=== PATIENT | female | born 1965 | race Hispanic/Latino ===

== ENCOUNTER 2019-01-20 21:56 | Emergency (ER) | payer OTHER ==
[2019-01-20] MEDS ORDERED: LIDOCAINE 5% TOPICAL PATCH TP ONE (22:30)
[2019-01-20] MEDS ORDERED: KETOROLAC TROMETHAMINE 60 MG/2 ML VIAL ONE (22:30)
[2019-01-20] MEDS ORDERED: DEXAMETHASONE SOD PHOSPHATE 10MG/ML 1ML VIAL ONE (22:30)
== END 2019-01-20 23:10 | disposition home or self-care (01) ==
LOC: EDH 21:56
DX: M54.40 Lumbago with sciatica, unspecified side (principal); Z90.49 Acquired absence of other specified parts of digestive tract; Z98.51 Tubal ligation status; Z90.710 Acquired absence of both cervix and uterus; Z98.890 Other specified postprocedural states; Z88.5 Allergy status to narcotic agent; Z88.8 Allergy status to other drugs, medicaments and biological substances
CPT/HCPCS: 96372 ×2; 99284; J1100; J1885

== ENCOUNTER 2019-02-15 20:14 | Emergency (ER) | payer OTHER ==
[2019-02-15] MEDS ORDERED: KETOROLAC TROMETHAMINE 60 MG/2 ML VIAL ONE (20:33)
[2019-02-15] MEDS ORDERED: DEXAMETHASONE SOD PHOSPHATE 4 MG/ML 5ML VIAL ONE (20:33)
== END 2019-02-15 21:31 | disposition home or self-care (01) ==
LOC: EDH 20:14
DX: M54.42 Lumbago with sciatica, left side (principal); I10 Essential (primary) hypertension; Z88.6 Allergy status to analgesic agent; Z88.8 Allergy status to other drugs, medicaments and biological substances; Z98.890 Other specified postprocedural states; Z98.51 Tubal ligation status; Z90.710 Acquired absence of both cervix and uterus; Z79.899 Other long term (current) drug therapy
CPT/HCPCS: 96372 ×2; 99284; J1100; J1885

== ENCOUNTER 2019-02-18 15:02 | Emergency (ER) | payer OTHER ==
[2019-02-18] MEDS ORDERED: KETOROLAC TROMETHAMINE 60 MG/2 ML VIAL ONE (15:55)
[2019-02-18 16:13] LABS: APPEARANCE,URINE Clear (CLEAR); BILIRUBIN,URINE Negative (NEGATIVE); COLOR,URINE Yellow (YELLOW); GLUCOSE, URINE (UA) Negative (NEGATIVE); KETONES,URINE Negative (NEGATIVE); LEUKOCYTE ESTERASE ,URINE Moderate (NEGATIVE); NITRATE,URINE Negative (NEGATIVE); OCCULT BLOOD,URINE Negative (NEGATIVE); PROTEIN,URINE Negative (NEGATIVE)
[2019-02-18 16:19] LABS: BACTERIA,URINE Few /HPF (None Seen); MUCUS,URINE Few LPF (None Seen); RBC,URINE 0-1 /HPF (0-1)
== END 2019-02-18 16:34 | disposition home or self-care (01) ==
LOC: EDH 15:02
DX: M54.42 Lumbago with sciatica, left side (principal); N39.0 Urinary tract infection, site not specified; I10 Essential (primary) hypertension; Z88.6 Allergy status to analgesic agent; Z90.49 Acquired absence of other specified parts of digestive tract; Z98.890 Other specified postprocedural states; Z98.51 Tubal ligation status; Z90.710 Acquired absence of both cervix and uterus
CPT/HCPCS: 81001; 96372; 99283; J1885

== ENCOUNTER 2019-02-21 20:55 | Emergency (ER) | payer OTHER ==
[2019-02-21 21:21] LABS: APPEARANCE,URINE Clear (CLEAR); BILIRUBIN,URINE Negative (NEGATIVE); COLOR,URINE Yellow (YELLOW); GLUCOSE, URINE (UA) Negative (NEGATIVE); KETONES,URINE Negative (NEGATIVE); LEUKOCYTE ESTERASE ,URINE Trace (NEGATIVE); NITRATE,URINE Negative (NEGATIVE); OCCULT BLOOD,URINE Negative (NEGATIVE); PROTEIN,URINE Negative (NEGATIVE); UROBILINOGEN,URINE 0.2 mg/dL (0.2-1.0)
[2019-02-21 21:33] LABS: BACTERIA,URINE Rare /HPF (None Seen); RBC,URINE 0-1 /HPF (0-1)
[2019-02-21 22:20] LABS: BASOPHILS % (AUTO) 0.4 % (0.0-5.0); EOSINOPHILS % (AUTO) 1.5 % (0.0-8.0); HEMATOCRIT 40.4 % (36-48); LYMPHOCYTES % (AUTO) 11.7 % (21.0-51.0); MEAN CORPUSCULAR HGB CONC 34.6 g/dL (32.0-36.0); MEAN CORPUSCULAR VOLUME 95.2 fL (79-99); MONOCYTES % (AUTO) 7.9 % (3.0-13.0); NEUTROPHILS % (AUTO) 78.5 % (40.0-77.0); PLATELET COUNT (AUTO) 367 K/uL (130-400); RED BLOOD CELL COUNT(AUTO) 4.24 MIL/uL (4.00-5.50); WHITE BLOOD COUNT (AUTO) 11.8 K/uL (4.8-10.8)
[2019-02-21] MEDS ORDERED: SODIUM CHLORIDE 0.9% 1000ML 1,000 ML IV ONE (22:21)
[2019-02-21 22:30] LABS: POTASSIUM 4.4 mmol/L (3.5-5.1)
[2019-02-21 22:33] LABS: ALBUMIN 3.4 g/dL (3.5-5.0); BILIRUBIN,TOTAL 0.5 mg/dL (0.2-1.0); TOTAL PROTEIN, SERUM 7.4 g/dL (6.0-8.3)
[2019-02-21] MEDS ORDERED: CEFTRIAXONE SODIUM 1 GM ONE (22:35)
[2019-02-21] MEDS ORDERED: SODIUM CHLORIDE 0.9% 50 ML IV ONE (22:35)
[2019-02-21] MEDS ORDERED: KETOROLAC TROMETHAMINE 30MG/ML ONE (22:35)
== END 2019-02-21 23:43 | disposition home or self-care (01) ==
LOC: EDH 20:55
DX: N39.0 Urinary tract infection, site not specified (principal); M54.2 Cervicalgia; R19.7 Diarrhea, unspecified; I10 Essential (primary) hypertension; Z98.51 Tubal ligation status; Z90.710 Acquired absence of both cervix and uterus; Z88.5 Allergy status to narcotic agent; Z88.8 Allergy status to other drugs, medicaments and biological substances
CPT/HCPCS: 36415; 72131; 74176; 80053; 81001; 85025; 87088; 96361; 96374; 96375; 99285; J0696; J1885; J7030

== ENCOUNTER 2019-03-04 17:24 | Emergency (ER) | payer OTHER ==
[2019-03-04 17:46] LABS: APPEARANCE,URINE Cloudy (CLEAR); BILIRUBIN,URINE Small (NEGATIVE); COLOR,URINE Dark Yellow (YELLOW); GLUCOSE, URINE (UA) TRACE mg/dL (NEGATIVE); KETONES,URINE Trace mg/dL (NEGATIVE); LEUKOCYTE ESTERASE ,URINE Small (NEGATIVE); NITRATE,URINE Negative (NEGATIVE); OCCULT BLOOD,URINE Negative (NEGATIVE); PROTEIN,URINE POS 1+ mg/dL (NEGATIVE)
[2019-03-04 17:52] LABS: BACTERIA,URINE Few /HPF (None Seen); MUCUS,URINE Few LPF (None Seen); RBC,URINE 0-1 /HPF (0-1); SQUAMOUS EPITHELIAL CELL,UR Few /HPF (0-2)
[2019-03-04 18:09] LABS: BASOPHILS % (AUTO) 0.5 % (0.0-5.0); EOSINOPHILS % (AUTO) 1.3 % (0.0-8.0); HEMATOCRIT 41.8 % (36-48); LYMPHOCYTES % (AUTO) 11.5 % (21.0-51.0); MEAN CORPUSCULAR HEMOGLOBIN 32.5 pg (27.0-33.0); MEAN CORPUSCULAR HGB CONC 33.9 g/dL (32.0-36.0); MEAN CORPUSCULAR VOLUME 95.9 fL (79-99); MONOCYTES % (AUTO) 6.5 % (3.0-13.0); NEUTROPHILS % (AUTO) 80.2 % (40.0-77.0); PLATELET COUNT (AUTO) 364 K/uL (130-400); RED BLOOD CELL COUNT(AUTO) 4.36 MIL/uL (4.00-5.50); RED CELL DISTRIBUTION WIDTH 12.6 % (11.0-15.5); WHITE BLOOD COUNT (AUTO) 14.5 K/uL (4.8-10.8)
[2019-03-04] MEDS ORDERED: ONDANSETRON HCL 4 MG/2 ML VIAL ONE (18:11)
[2019-03-04] MEDS ORDERED: KETOROLAC TROMETHAMINE 30MG/ML ONE (18:11)
[2019-03-04] MEDS ORDERED: SODIUM CHLORIDE 0.9% 1000ML 1,000 ML IV ONE (18:12)
[2019-03-04 18:21] LABS: CREATININE 0.9 mg/dL (0.5-1.5); POTASSIUM 3.7 mmol/L (3.5-5.1)
[2019-03-04 18:26] LABS: ALBUMIN 3.3 g/dL (3.5-5.0); BILIRUBIN,TOTAL 0.5 mg/dL (0.2-1.0); TOTAL PROTEIN, SERUM 7.3 g/dL (6.0-8.3)
[2019-03-04] MEDS ORDERED: IOHEXOL-350 75 ML VIAL IV ONE (18:32)
== END 2019-03-04 19:55 | disposition home or self-care (01) ==
LOC: EDH 17:24
DX: K52.9 Noninfective gastroenteritis and colitis, unspecified (principal); I10 Essential (primary) hypertension; Z88.6 Allergy status to analgesic agent; Z88.8 Allergy status to other drugs, medicaments and biological substances; Z90.710 Acquired absence of both cervix and uterus; Z98.890 Other specified postprocedural states; Z98.51 Tubal ligation status; Z79.899 Other long term (current) drug therapy
CPT/HCPCS: 36415; 71045; 74177; 80053; 81001; 83605; 83690; 85025; 87040 ×2; 87804 ×2; 96361; 96374; 96375; 99285; J1885; J2405; J7030; Q9967

== ENCOUNTER 2020-04-28 13:31 | Emergency (ER) | payer BC, OTHER ==
[2020-04-28 15:04] LABS: BASOPHILS % (AUTO) 0.4 % (0.0-5.0); EOSINOPHILS % (AUTO) 2.2 % (0.0-8.0); LYMPHOCYTES % (AUTO) 12.2 % (21.0-51.0); MEAN CORPUSCULAR HEMOGLOBIN 32.5 pg (27.0-33.0); MEAN CORPUSCULAR HGB CONC 33.8 g/dL (32.0-36.0); MEAN CORPUSCULAR VOLUME 96.1 fL (79-99); MONOCYTES % (AUTO) 7.5 % (3.0-13.0); NEUTROPHILS % (AUTO) 77.4 % (40.0-77.0); PLATELET COUNT (AUTO) 370 K/uL (130-400); RED BLOOD CELL COUNT(AUTO) 3.85 MIL/uL (4.00-5.50); RED CELL DISTRIBUTION WIDTH 13.2 % (11.0-15.5); WHITE BLOOD COUNT (AUTO) 11.3 K/uL (4.8-10.8)
[2020-04-28 15:14] LABS: CREATININE 0.9 mg/dL (0.5-1.5); POTASSIUM 3.6 mmol/L (3.5-5.1)
[2020-04-28 15:15] LABS: INR 0.95 (0.85-1.15); PARTIAL THROMBOPLASTIN TIME 31.5 SEC (26.3-35.5); PROTHROMBIN TIME 10.3 SEC (9.6-11.6)
[2020-04-28 15:19] LABS: ALBUMIN 3.5 g/dL (3.5-5.0); BILIRUBIN,TOTAL 0.5 mg/dL (0.2-1.0); TOTAL PROTEIN, SERUM 7.2 g/dL (6.0-8.3)
== END 2020-04-28 17:29 | disposition home or self-care (01) ==
LOC: EDH 13:31
DX: R07.89 Other chest pain (principal); I11.0 Hypertensive heart disease with heart failure; I50.9 Heart failure, unspecified; E11.9 Type 2 diabetes mellitus without complications; E78.00 Pure hypercholesterolemia, unspecified; Z90.710 Acquired absence of both cervix and uterus; Z98.890 Other specified postprocedural states; Z88.6 Allergy status to analgesic agent; Z88.8 Allergy status to other drugs, medicaments and biological substances; Z79.899 Other long term (current) drug therapy; Z79.84 Long term (current) use of oral hypoglycemic drugs
CPT/HCPCS: 36415; 71045; 80053; 82550; 84484; 85025; 85610; 85730; 93005

== ENCOUNTER 2021-05-22 18:45 | Emergency (ER) | payer BC ==
[~2021-05-22] VITALS: Ht 170.2 cm; Wt 103.4 kg
[2021-05-22 19:14] LABS: BASOPHILS % (AUTO) 0.3 % (0.0-5.0); EOSINOPHILS % (AUTO) 0.7 % (0.0-8.0); HEMATOCRIT 39.6 % (36-48); LYMPHOCYTES % (AUTO) 9.2 % (21.0-51.0); MEAN CORPUSCULAR HGB CONC 33.8 g/dL (32.0-36.0); MEAN CORPUSCULAR VOLUME 94.5 fL (79-99); MONOCYTES % (AUTO) 7.2 % (3.0-13.0); NEUTROPHILS % (AUTO) 82.3 % (40.0-77.0); PLATELET COUNT (AUTO) 323 K/uL (130-400); RED BLOOD CELL COUNT(AUTO) 4.19 MIL/uL (4.00-5.50); RED CELL DISTRIBUTION WIDTH 12.4 % (11.0-15.5); WHITE BLOOD COUNT (AUTO) 15.1 K/uL (4.8-10.8)
[2021-05-22] MEDS ORDERED: 0.9% NACL 500ML IV.SOLN 500 ML IV STA (19:40)
[2021-05-22 19:42] LABS: CREATININE 1.6 mg/dL (0.5-1.5); POTASSIUM 3.6 mmol/L (3.5-5.1)
[2021-05-22 19:46] LABS: BILIRUBIN,TOTAL 0.4 mg/dL (0.2-1.0); TOTAL PROTEIN, SERUM 7.3 g/dL (6.0-8.3)
[2021-05-22] MEDS ORDERED: PROCHLORPERAZINE 10MG/2ML INJ ONE (19:53)
[2021-05-22 19:58] LABS: APPEARANCE,URINE CLOUDY (CLEAR); BILIRUBIN,URINE LARGE (NEGATIVE); COLOR,URINE ORANGE (YELLOW); GLUCOSE, URINE (UA) 250 mg/dL (NEGATIVE); KETONES,URINE 15 mg/dL (NEGATIVE); LEUKOCYTE ESTERASE ,URINE LARGE (NEGATIVE); NITRATE,URINE POSITIVE (NEGATIVE); OCCULT BLOOD,URINE TRACE-INTACT (NEGATIVE); PH,URINE 6.5 (5.0-8.0); PROTEIN,URINE >=300 mg/dL (NEGATIVE); UROBILINOGEN,URINE >=8.0 mg/dL (0.2-1.0)
[2021-05-22] MEDS ORDERED: PROCHLORPERAZINE 10MG/2ML INJ IV ONE (20:00)
[2021-05-22 20:09] LABS: BACTERIA,URINE Moderate /HPF (None Seen); MUCUS,URINE Few LPF (None Seen); SQUAMOUS EPITHELIAL CELL,UR Few /HPF (0-2)
[2021-05-22] MEDS ORDERED: CEFTRIAXONE 1G VIAL IVP ONE (20:18)
[2021-05-22] MEDS ORDERED: CEFTRIAXONE 1G VIAL IVP SCH (20:18)
[2021-05-22] MEDS ORDERED: 0.9% NACL 500ML IV.SOLN 500 ML IV ONE (20:31)
[2021-05-22] MEDS ORDERED: MECL-226 PO (21:47)
[2021-05-22] MEDS ORDERED: CEPH500B PO (21:47)
[2021-05-22 22:09] VITALS: BP 134/84
== END 2021-05-22 22:21 | disposition home or self-care (01) ==
LOC: EDH 18:45
DX: N39.0 Urinary tract infection, site not specified (principal); H83.09 Labyrinthitis, unspecified ear; E11.9 Type 2 diabetes mellitus without complications; E78.00 Pure hypercholesterolemia, unspecified; I10 Essential (primary) hypertension; Z88.5 Allergy status to narcotic agent
CPT/HCPCS: 36415; 71045; 80053; 81001; 84484; 85025; 87040 ×2; 87077; 87088; 87186; 93005; 96361; 96374; 96375; 99284; J0696; J0780; J7040

== ENCOUNTER 2021-08-25 17:32 | Emergency (ER) | payer BC, OTHER ==
[~2021-08-25] VITALS: Ht 167.6 cm; Wt 104.3 kg
[~2021-08-25 17:32] MED LIST: CEPH500B PO; MECL-226 PO
[2021-08-25 17:34] VITALS: BP 130/86
[2021-08-25 20:26] LABS: APPEARANCE,URINE Clear (CLEAR); BILIRUBIN,URINE Small (NEGATIVE); COLOR,URINE Dark Yellow (YELLOW); GLUCOSE, URINE (UA) Negative (NEGATIVE); KETONES,URINE Trace mg/dL (NEGATIVE); LEUKOCYTE ESTERASE ,URINE Trace (NEGATIVE); NITRATE,URINE Negative (NEGATIVE); OCCULT BLOOD,URINE Negative (NEGATIVE); PH,URINE 5.5 (5.0-8.0); PROTEIN,URINE Trace mg/dL (NEGATIVE)
[2021-08-25 20:29] LABS: BASOPHILS % (AUTO) 0.7 % (0.0-5.0); EOSINOPHILS % (AUTO) 2.1 % (0.0-8.0); HEMATOCRIT 39.6 % (36-48); LYMPHOCYTES % (AUTO) 15.8 % (21.0-51.0); MEAN CORPUSCULAR HEMOGLOBIN 31.1 pg (27.0-33.0); MEAN CORPUSCULAR HGB CONC 32.3 g/dL (32.0-36.0); MEAN CORPUSCULAR VOLUME 96.4 fL (79-99); MONOCYTES % (AUTO) 7.9 % (3.0-13.0); NEUTROPHILS % (AUTO) 73.1 % (40.0-77.0); PLATELET COUNT (AUTO) 381 K/uL (130-400); RED BLOOD CELL COUNT(AUTO) 4.11 MIL/uL (4.00-5.50); RED CELL DISTRIBUTION WIDTH 12.5 % (11.0-15.5); WHITE BLOOD COUNT (AUTO) 11.7 K/uL (4.8-10.8)
[2021-08-25] MEDS ORDERED: TRAMADOL HCL 50 MG TABLET PO ONE (20:30)
[2021-08-25 20:37] LABS: BACTERIA,URINE Few /HPF (None Seen); MUCUS,URINE Moderate LPF (None Seen); RBC,URINE 0-1 /HPF (0-1); SQUAMOUS EPITHELIAL CELL,UR Few /HPF (0-2)
[2021-08-25 20:39] LABS: CREATININE 0.9 mg/dL (0.5-1.5); POTASSIUM 3.9 mmol/L (3.5-5.1)
[2021-08-25 20:39] LABS: HYALINE CASTS, URINE 0-1 /LPF (0-1 /LPF)
[2021-08-25 20:44] LABS: ALBUMIN 3.8 g/dL (3.5-5.0); BILIRUBIN,TOTAL 0.4 mg/dL (0.2-1.0); TOTAL PROTEIN, SERUM 7.5 g/dL (6.0-8.3)
[2021-08-25] MEDS ORDERED: IOHEXOL 350 MG/ML 100ML INFUS..BTL IV ONE (20:50)
[2021-08-25] MEDS ORDERED: TRAMADOL HCL 50 MG TABLET ONE (21:56)
[2021-08-25] MEDS ORDERED: KETOROLAC 30MG VIAL (30MG/ML) IM ONE (22:00)
[2021-08-25] MEDS ORDERED: NAPR-1023 PO (22:45)
== END 2021-08-25 22:57 | disposition home or self-care (01) ==
LOC: EDH 17:32
DX: R10.2 Pelvic and perineal pain (principal); E11.9 Type 2 diabetes mellitus without complications; E78.00 Pure hypercholesterolemia, unspecified; I10 Essential (primary) hypertension; Z79.1 Long term (current) use of non-steroidal anti-inflammatories (NSAID); Z88.5 Allergy status to narcotic agent
CPT/HCPCS: 36415; 73521; 74177; 80053; 81001; 85025; 96372; 99285; J1885; Q9967

== ENCOUNTER 2021-10-11 23:14 | Emergency (ER) | payer OTHER ==
[~2021-10-11] VITALS: Ht 170.2 cm; Wt 112.5 kg
[~2021-10-11 23:14] MED LIST changes: +NAPR-1023 PO
[2021-10-11 23:53] LABS: BASOPHILS % (AUTO) 0.5 % (0.0-5.0); HEMATOCRIT 32.8 % (36-48); LYMPHOCYTES % (AUTO) 17.3 % (21.0-51.0); MEAN CORPUSCULAR HEMOGLOBIN 31.9 pg (27.0-33.0); MEAN CORPUSCULAR HGB CONC 33.5 g/dL (32.0-36.0); MEAN CORPUSCULAR VOLUME 95.1 fL (79-99); MONOCYTES % (AUTO) 10.1 % (3.0-13.0); NEUTROPHILS % (AUTO) 68.7 % (40.0-77.0); PLATELET COUNT (AUTO) 317 K/uL (130-400); RED BLOOD CELL COUNT(AUTO) 3.45 MIL/uL (4.00-5.50); RED CELL DISTRIBUTION WIDTH 13.1 % (11.0-15.5)
[2021-10-12 00:02] LABS: CREATININE 0.7 mg/dL (0.5-1.5); POTASSIUM 3.6 mmol/L (3.5-5.1)
[2021-10-12 00:11] LABS: BILIRUBIN,TOTAL 0.3 mg/dL (0.2-1.0); TOTAL PROTEIN, SERUM 6.4 g/dL (6.0-8.3)
[2021-10-12] MEDS ORDERED: KETOROLAC 30MG VIAL (30MG/ML) IVP ONE (00:30)
[2021-10-12] MEDS ORDERED: 0.9%NACL 1000ML 1,000 ML IV ONE (00:30)
[2021-10-12] MEDS ORDERED: ORPHENADRINE CITRATE 30 MG/ML ML IVP ONE (00:30)
[2021-10-12] MEDS ORDERED: ONDANSETRON 4MG INJ IVP ONE (00:30)
[2021-10-12] MEDS ORDERED: MELO7.5T12 PO (02:59)
[2021-10-12] MEDS ORDERED: ORPH-43 PO (02:59)
[2021-10-12] MEDS ORDERED: HYDR25CA PO (02:59)
[2021-10-12] MEDS ORDERED: ONDA4TAB10 PO (02:59)
[2021-10-12 03:09] VITALS: BP 148/87
== END 2021-10-12 03:10 | disposition home or self-care (01) ==
LOC: EDH 23:14
DX: M62.838 Other muscle spasm (principal); F43.9 Reaction to severe stress, unspecified; E86.9 Volume depletion, unspecified; E11.9 Type 2 diabetes mellitus without complications; I11.9 Hypertensive heart disease without heart failure; I25.10 Atherosclerotic heart disease of native coronary artery without angina pectoris; Z88.5 Allergy status to narcotic agent; Z86.16 Personal history of COVID-19; Z79.1 Long term (current) use of non-steroidal anti-inflammatories (NSAID); Z90.49 Acquired absence of other specified parts of digestive tract
CPT/HCPCS: 36415; 71045; 80053; 84484; 85025; 96361; 93005; 96374; 96375 ×2; 99285; J1885; J2360; J2405; J7030

== ENCOUNTER 2021-10-12 13:55 | Emergency (ER) | payer OTHER ==
[~2021-10-12] VITALS: Ht 170.2 cm; Wt 109.8 kg
[~2021-10-12 13:55] MED LIST changes: +HYDR25CA PO; +MELO7.5T12 PO; +ONDA4TAB10 PO; +ORPH-43 PO
[2021-10-12 15:32] VITALS: BP 159/79
== END 2021-10-12 15:57 | disposition home or self-care (01) ==
LOC: EDH 13:55
DX: I10 Essential (primary) hypertension (principal); E11.9 Type 2 diabetes mellitus without complications; Z79.1 Long term (current) use of non-steroidal anti-inflammatories (NSAID); Z88.5 Allergy status to narcotic agent; Z90.49 Acquired absence of other specified parts of digestive tract
CPT/HCPCS: 99281

== ENCOUNTER 2021-10-13 22:39 | Emergency (ER) | payer OTHER ==
[~2021-10-13] VITALS: Ht 170.2 cm; Wt 107.0 kg
[2021-10-14 00:31] VITALS: BP 158/89
== END 2021-10-14 00:37 | disposition home or self-care (01) ==
LOC: EDH 22:39
DX: I10 Essential (primary) hypertension (principal); E11.9 Type 2 diabetes mellitus without complications; Z79.1 Long term (current) use of non-steroidal anti-inflammatories (NSAID); Z88.5 Allergy status to narcotic agent
CPT/HCPCS: 99281

== ENCOUNTER 2022-07-14 00:33 | Emergency (ER) | payer OTHER ==
[~2022-07-14] VITALS: Ht 167.6 cm; Wt 103.9 kg
[2022-07-14 01:05] VITALS: BP 125/68
[2022-07-14 04:39] LABS: BASOPHILS % (AUTO) 0.6 % (0.0-5.0); EOSINOPHILS % (AUTO) 2.7 % (0.0-8.0); HEMATOCRIT 38.1 % (36-48); LYMPHOCYTES % (AUTO) 19.8 % (21.0-51.0); MEAN CORPUSCULAR HEMOGLOBIN 31.8 pg (27.0-33.0); MEAN CORPUSCULAR HGB CONC 33.3 g/dL (32.0-36.0); MEAN CORPUSCULAR VOLUME 95.5 fL (79-99); NEUTROPHILS % (AUTO) 67.7 % (40.0-77.0); PLATELET COUNT (AUTO) 311 K/uL (130-400); RED BLOOD CELL COUNT(AUTO) 3.99 MIL/uL (4.00-5.50); RED CELL DISTRIBUTION WIDTH 12.6 % (11.0-15.5); WHITE BLOOD COUNT (AUTO) 8.2 K/uL (4.8-10.8)
[2022-07-14 04:49] LABS: CREATININE 0.6 mg/dL (0.5-1.5); POTASSIUM 3.8 mmol/L (3.5-5.1)
[2022-07-14 04:54] LABS: ALBUMIN 3.7 g/dL (3.5-5.0); TOTAL PROTEIN, SERUM 7.6 g/dL (6.0-8.3)
== END 2022-07-14 06:41 | disposition home or self-care (01) ==
LOC: EDH 00:33
DX: R10.9 Unspecified abdominal pain (principal); R11.2 Nausea with vomiting, unspecified; R19.7 Diarrhea, unspecified; I10 Essential (primary) hypertension; E11.9 Type 2 diabetes mellitus without complications; Z88.6 Allergy status to analgesic agent; Z88.8 Allergy status to other drugs, medicaments and biological substances
CPT/HCPCS: 36415; 74176; 80053; 85025

== ENCOUNTER 2022-11-12 10:33 | Emergency (ER) | payer BC ==
[~2022-11-12] VITALS: Ht 170.2 cm; Wt 99.8 kg
[~2022-11-12 10:33] MED LIST changes: -ORPH-43 PO; +ORPH100T4 PO
[2022-11-12 11:38] LABS: BASOPHILS % (AUTO) 0.7 % (0.0-5.0); EOSINOPHILS % (AUTO) 1.7 % (0.0-8.0); HEMATOCRIT 40.7 % (36-48); LYMPHOCYTES % (AUTO) 16.7 % (21.0-51.0); MEAN CORPUSCULAR HGB CONC 34.4 g/dL (32.0-36.0); MEAN CORPUSCULAR VOLUME 93.1 fL (79-99); MONOCYTES % (AUTO) 7.6 % (3.0-13.0); NEUTROPHILS % (AUTO) 73.1 % (40.0-77.0); PLATELET COUNT (AUTO) 342 K/uL (130-400); RED BLOOD CELL COUNT(AUTO) 4.37 MIL/uL (4.00-5.50); RED CELL DISTRIBUTION WIDTH 12.2 % (11.0-15.5)
[2022-11-12 11:53] LABS: CREATININE 0.7 mg/dL (0.5-1.5); POTASSIUM 4.2 mmol/L (3.5-5.1)
[2022-11-12 12:00] LABS: ALBUMIN 3.7 g/dL (3.5-5.0); THYROID STIMULATING HORMONE 0.93 uIU/mL (0.36-3.74); TOTAL PROTEIN, SERUM 7.6 g/dL (6.0-8.3)
[2022-11-12 13:02] LABS: APPEARANCE,URINE CLEAR (CLEAR); BILIRUBIN,URINE NEGATIVE (NEGATIVE); COLOR,URINE YELLOW (YELLOW); GLUCOSE, URINE (UA) NEGATIVE (NEGATIVE); KETONES,URINE 5 mg/dL (NEGATIVE); LEUKOCYTE ESTERASE ,URINE 75 Leu/uL (NEGATIVE); NITRATE,URINE NEGATIVE (NEGATIVE); OCCULT BLOOD,URINE NEGATIVE (NEGATIVE); PH,URINE 5.5 (5.0-8.0); PROTEIN,URINE 30 mg/dL (NEGATIVE)
[2022-11-12 13:09] LABS: MUCUS,URINE RARE LPF (None Seen); SQUAMOUS EPITHELIAL CELL,UR RARE /HPF (0-2); WBC,URINE 0-1 /HPF (0-1)
[2022-11-12] MEDS ORDERED: AMOX-426 PO (13:52)
[2022-11-12] MEDS ORDERED: LORA10TA7 PO (13:52)
[2022-11-12] MEDS ORDERED: FLUT16H NASAL (13:52)
[2022-11-12] MEDS ORDERED: CEFTRIAXONE 1G VIAL IVPB ONE (14:00)
[2022-11-12 14:21] VITALS: BP 138/81
== END 2022-11-12 14:30 | disposition home or self-care (01) ==
LOC: EDH 10:33
DX: J32.9 Chronic sinusitis, unspecified (principal); K57.32 Diverticulitis of large intestine without perforation or abscess without bleeding; I10 Essential (primary) hypertension; E78.00 Pure hypercholesterolemia, unspecified; E11.9 Type 2 diabetes mellitus without complications; Z88.8 Allergy status to other drugs, medicaments and biological substances; Z90.710 Acquired absence of both cervix and uterus; Z90.49 Acquired absence of other specified parts of digestive tract
CPT/HCPCS: 99284; 96365; 70450; 84443; 83735; 80053; 85025; 87088; 81001; 36415; J0696

== ENCOUNTER 2024-11-18 17:43 | Emergency (ER) | payer BC ==
[~2024-11-18] VITALS: Ht 172.7 cm; Wt 108.9 kg
[~2024-11-18 17:43] MED LIST changes: +AMOX-426 PO; +FLUT16H NASAL; +LORA10TA7 PO; -NAPR-1023 PO; +NAPR-1194 PO; +ONDA-243 PO; -ONDA4TAB10 PO
[2024-11-18 17:48] VITALS: BP 158/83; PULSE 78; RESP 20; TEMP 99.4
[2024-11-18] MEDS: cefTRIAXone 1G VIAL IM ONE (17:56)
[2024-11-18] MEDS ORDERED: IBUP-2077 PO (17:56)
[2024-11-18] MEDS: ketOROlac 60 MG VIAL (30MG/ML) IM ONE (17:56)
[2024-11-18] MEDS ORDERED: CIPOTIC OTIC (17:56)
--- NOTE | 2024-11-18 17:57 | ERN ---
ED Note History of Present Illness Stated Complaint: EARACHE Chief Complaint: Earache Time Seen by MD: 17:44 Dictation: PATIENT IS A 59-YEAR-OLD FEMALE COMING IN TODAY FROM HER PRIMARY CARE DOCTOR'S OFFICE WITH COMPLAINTS OF BILATERAL EAR PAIN WITH PRESSURE SHE HAS HAD FOR SEVERAL DAYS. NO NAUSEA VOMITING NO FEVER NO CHILLS. NO MASTOID TENDERNESS. PATIENT WAS SEEN AT A LOCAL [facility] TWO DAYS AGO AND WAS PRESCRIBED AUGMENTIN 875 WITHOUT THE BENEFIT OF ANY TOPICAL DROPS. NO MEDICATIONS WERE GIVEN FOR PAIN. SHE SAW HER PRIMARY CARE DOCTOR TODAY WHO EXAMINED HER TOLD HER TO CONTINUE THE AUGMENTIN WITHOUT ANY SUPPLEMENTAL TREATMENT. Allergies: Coded Allergies: codeine (Unverified Allergy, Unknown, 05/22/21) meperidine (Unverified Allergy, Unknown, 05/22/21) morphine (Unverified Allergy, Unknown, 01/20/19) sumatriptan (Unverified Allergy, Unknown, 01/20/19) Home Meds Active Scripts Loratadine (Loratadine) 10 Mg Tablet, 10 MG PO HS, #20 TAB 0 Refills Prov:TANIA JOYA MD 11/12/22 Fluticasone Propionate (Flonase Nasal [place]) 50 Mcg/[place], 2 SPRAY NASAL HS, #1 INHALER 0 Refills Prov:TANIA JOYA MD 11/12/22 Amoxicillin/Potassium Clav (Augmentin 500-125 Tablet) 1 Each Tablet, 1 EACH PO BID, #20 TAB 0 Refills Prov:TANIA JOYA MD 11/12/22 Hydroxyzine Pamoate (Vistaril) 25 Mg Capsule, 25 MG PO HSPRN PRN for ANXIETY, #20 CAP 0 Refills Prov:NORBERT CORDERO MD 10/12/21 Meloxicam (Mobic) 7.5 Mg Tablet, 7.5 MG PO DAILY, #10 TAB 0 Refills Prov:NORBERT CORDERO MD 10/12/21 Orphenadrine Citrate (Orphenadrine Citrate) 100 Mg Tablet.er, 100 MG PO [id number], #20 TAB 0 Refills Prov:NORBERT CORDERO MD 10/12/21 Ondansetron (Ondansetron Odt) 4 Mg Tab.rapdis, 4 MG PO Q6HPRN, #20 TAB 0 Refills Prov:NORBERT CORDERO MD 10/12/21 Naproxen (Naproxen) 500 Mg Tablet, 500 MG PO BID, #15 TAB Prov:DUTCH HENRIQUEZ MIKE 08/25/21 Meclizine HCl (Meclizine HCl) 12.5 Mg Tablet, 25 MG PO TID for 10 Days, #30 TAB Prov:RASHEED UMANA MD 05/22/21 Cephalexin Monohydrate (Keflex) 500 Mg Cap, 500 MG PO QID for 10 Days, #40 CAP Prov:RASHEED UMANA MD 05/22/21 Past Medical History Past Medical History: Diabetes-Type I, Diabetes-Type II, Diverticulosis, High Cholesterol, Hypertension Additional Past Medical Hx: COVID Surgical History: Hysterectomy, Cholecystectomy, Surgical History Other: D & C X 2; TUBAL LIGATION Family History: Negative Social History: Negative, Lives with family, Other History: Not Applicable RN Note Reviewed/Agreed w/PFSH: Yes Review of System Dictation CONSTITUTIONAL: NEGATIVE EXCEPT FOR HPI HEAD/FACE: NEGATIVE EXCEPT FOR HPI EENT: NEGATIVE EXCEPT FOR HPI BILATERAL EAR PAIN RESPIRATORY: NEGATIVE EXCEPT FOR HPI GASTROINTESTINAL/ABDOMINAL: NEGATIVE EXCEPT FOR HPI GENITOURINARY: NEGATIVE EXCEPT FOR HPI MUSCULOSKELETAL: NEGATIVE EXCEPT FOR HPI INTEGUMENTARY: NEGATIVE EXCEPT FOR HPI NEUROLOGICAL/PSYCH: NEGATIVE EXCEPT FOR HPI HEMATOLOGIC/LYMPHATIC: NEGATIVE EXCEPT FOR HPI ALL SYSTEMS NEGATIVE, EXCEPT NOTED ABOVE. 13 POINT REVIEW OF SYSTEMS ASSESSED AND ALL NEGATIVE EXCEPT FOR ABOVE. Physical Exam Dictation VITAL SIGNS REVIEWED GENERAL APPEARANCE: ALERT, ORIENTED X 3, MODERATE ACUTE DISTRESS, WELL DEV ELOPED, NOURISHED. HEAD AND FACE: NON-TRAUMATIC. EYES: PERRL, PINK CONJUNCTIVAS, EYELID NO TRAUMA, ANTERIOR CHAMBER WITH ARCUS SENILIS. EARS: PINNAS INTACT AND NO SIGNS OF TRAUMA BILATERAL TYMPANIC MEMBRANES INTACT. OTIC CANALS WITH ERYTHEMA SWELLING TENDERNESS. NO DISCHARGE, NO MASTOID TENDERNESS OROPHARYNX: MOUTH NORMAL, TONGUE PINK, PHARYNX CLEAR,NO ERYTHEMA, TONSILS NO EXUDATES, NO ABSCESSES NOTED, MUCOUS MEMBRANE MOIST NECK: SUPPLE, NON-TENDER, NO THYROMEGALY, NO MASSES, NO JVD, NO BRUITS BREAST:DEFERRED CHEST:NO TENDERNESS, NO CREPITUS, NO PARADOXICAL MOVEMENT, NO RETRACTIONS LUNGS:CLEAR, WELL-VENTILATED, SYMMETRIC, NO RALES, NO WHEEZING, NO RHONCHI, NO STRIDOR, GOOD BREATH SOUNDS BILATERALLY HEART: REGULAR RATE, REGULAR RHYTHM, NO MURMUR, NO GALLOPS VASCULAR: NO PERIPHERAL EDEMA, ABDOMEN: SOFT, POSITIVE BOWEL SOUNDS, NONDISTENDED, NO GUARDING, NONTENDER, NO REBOUND, NO MASSES NO HEPATOMEGALY, NO SPLENOMEGALY, NO HANSEN'S SIGN, NO HERNIAS. RECTAL: DEFERRED GENITAL: DEFERRED NEUROLOGICAL: NORMAL SPEECH, MOTOR FUNCTION INTACT, SENSORY FUNCTION INTACT MUSCULOSKELETAL: NECK NONTENDER, FULL RANGE OF MOTION, BACK NONTENDER, FULL RANGE OF MOTION, EXTREMITIES: NONTENDER, FULL RANGE OF MOTION SKIN: COLOR PINK, DRY, NO TURGOR, NO RASH, NO LACERATIONS, NO ABRASIONS, NO CONTUSIONS. LYMPHATIC: DEFERRED Results (Laboratory/Radiology) Labs Reviewed?: Yes ED Course ED Course Orders Procedure Category Date Status Time Ceftriaxone 1g Vial PHA 11/18/24 Logged (Rocephine 1g Inj) 18:00 Ketorolac 60mg/2ml PHA 11/18/24 Logged (Toradol 60mg/2ml) 18:00 Current Medications Medications (Trade) Dose Ordered Sig/Uvaldo Route PRN Reason Start Time Stop Time Status Last Admin Dose Admin Ceftriaxone Sodium (ROCEphine 1G INJ) 1 gm ONCE ONCE IM 11/18/24 18:00 11/18/24 18:01 UNV Ketorolac Tromethamine (toRADol 60MG/ 2ML) 60 mg ONCE ONCE IM 11/18/24 18:00 11/18/24 18:01 UNV 1755/PATIENT WILL BE GIVEN ROCEPHIN 1 G WITH TORADOL 60 MG IM. ADDITIONALLY SHE WILL BE PRESCRIBED CIPRO HC WITH COTTON AN AUGMENT TO THE AUGMENTIN AND GIVEN TYLENOL WITH CODEINE FOR PAIN. Medical Decision Making MDM MEDICAL DISCHARGE MAKING WE WILL BE BASED ON EMPIRIC TREATMENT FOR OTITIS EXTERNA. AND OTALGIA PATIENT GIVEN ROCEPHIN 1 G WITH TORADOL 60 DISCHARGED HOME WITH INSTRUCTIONS TO CONTINUE AUGMENTIN 875 WE WILL BE GIVEN CIPRO HC OTIC DROPS WITH TYLENOL NO. 3 WITH CODEINE TOLD TO SEE HER PRIMARY CARE DOCTOR IN THE NEXT 2-3 DAYS IF NO IMPROVEMENT FOR ENT REFERRAL DX & DISP Disposition: Discharge Departure Impression: Primary Impression: Bilateral otitis externa Condition: Stable Scripts Ibuprofen (Ibuprofen 800 mg Tab) 800 Mg Tab 800 MG PO Q8H PRN for fever or pain, #30 TAB 0 Refills Prov: TEODORO ROMERO NP 11/18/24 Ciprofloxacin HCl/Hc (Cipro Hc Otic Susp) 0.2 %-1 % Otsus 3 DROP OTIC BID for 7 Days, #10 ML 0 Refills THREE DROPS TO EACH EAR WITH COTTON TWICE A DAY FOR SEVEN DAYS Prov: TEODORO ROMERO NP 11/18/24 Additional Instructions: FOLLOW-UP WITH PRIMARY CARE PROVIDER IN 1 TO 2 DAYS. TAKE MEDICATIONS DIRECTED HERE IN THE EMERGENCY ROOM. OKAY TO CONTINUE HOME MEDICATIONS UNLESS OTHERWISE DISCUSSED DURING YOUR VISIT IN THE EMERGENCY ROOM TODAY. RETURN TO YOUR NEAREST EMERGENCY ROOM IF SYMPTOMS WORSEN OR IF THERE IS NO IMPROVEMENT. CALL 911 IF YOU NEED IMMEDIATE ASSISTANCE. TAKE TYLENOL OR MOTRIN [id number] NEEDED AND IF NO CONTRAINDICATIONS ARE PRESENT. INCREASE ORAL HYDRATION. A WOUND CULTURE OR URINE CULTURE WAS ORDERED HERE IN THE EMERGENCY ROOM DEPARTMENT PLEASE FOLLOW-UP WITH PRIMARY CARE PROVIDER AND ADVISE THEM TO GET REPEAT PORTS FROM OUR FACILITY. IF YOU HAD ANY JOSSE WRAP/SPLINTS THAT WERE APPLIED HERE, PLEASE DO NOT REMOVE THEM UNTIL YOU SEE YOUR PRIMARY CARE OR SPECIALTY. POLICE USE CIPRO OTIC DROPS WITH COTTON TWICE A DAY DIRECTED FOR SEVEN DAYS. CONTINUE AUGMENTIN FROM YOUR VISIT TO THE URGENT CARE. TAKE IBUPROFEN EVERY 8 HOURS WITH FOOD FOR THE NEXT TWO DAYS. SEE YOUR PRIMARY CARE DOCTOR IF NO IMPROVEMENT IN 48 HOURS FOR REFERRAL TO ENT. Referrals: CHAPO COUGHLIN (PCP) Time of Disposition: 17:55 I have reviewed the case, and I agree with, Diagnosis and Plan TEODORO ROMERO NP November 18, 2024 17:57
== END 2024-11-18 18:13 | disposition home or self-care (01) ==
LOC: EDH 17:43
DX: H60.93 Unspecified otitis externa, bilateral (principal); E11.9 Type 2 diabetes mellitus without complications; E78.00 Pure hypercholesterolemia, unspecified; I10 Essential (primary) hypertension; Z79.1 Long term (current) use of non-steroidal anti-inflammatories (NSAID); Z86.16 Personal history of COVID-19; Z88.5 Allergy status to narcotic agent; Z90.49 Acquired absence of other specified parts of digestive tract; Z90.710 Acquired absence of both cervix and uterus
CPT/HCPCS: 99284; 96372 ×2; J1885; J0696

== ENCOUNTER 2024-12-05 17:56 | Emergency (ER) | payer BC ==
[~2024-12-05] VITALS: Ht 170.2 cm; Wt 108.0 kg
[~2024-12-05 17:56] MED LIST changes: +CIPOTIC OTIC; +IBUP-2077 PO
--- NOTE | 2024-12-05 18:28 | ERN ---
ED Note History of Present Illness Stated Complaint: ITCH IN EARS AND THROAT Chief Complaint: Earache Time Seen by MD: 18:09 Time Seen by Midlevel: 18:10 Dictation: Ms. Baum is a 59-year-old female with history of hypertension and obesity who presented to the emergency this evening for evaluation of ear pain. She reports approximately one month of a intermittent throat and ear pain. She states that her symptoms start to improve for a few days and then return. She states she has had a hoarse voice and that her throat feels "scratchy". She states she has seen her PCP and on Sunday she received dose steroid as well as a prescription for ear drops. She states symptoms persist and that she is unable to rest prompting her to come to the hospital. She denies having fever, chills, shortness of breath, cough, chest pain, palpitations, edema, abdominal pain, nausea, vomiting, diarrhea from dysuria, headache, or dizziness. PCP: MIKE Kapoor Allergies: Coded Allergies: codeine (Unverified Allergy, Unknown, 05/22/21) meperidine (Unverified Allergy, Unknown, 05/22/21) morphine (Unverified Allergy, Unknown, 01/20/19) sumatriptan (Unverified Allergy, Unknown, 01/20/19) Home Meds Active Scripts Loratadine (Loratadine) 10 Mg Tablet, 10 MG PO nightly, #30 TAB 0 Refills Prov:TETO SALAZAR METAL TILE SETTER 12/05/25 Fluticasone Propionate (Flonase Nasal [place]) 50 Mcg/[place], 2 SPRAY NS DAILY for 14 Days, #16 GM 0 Refills Prov:TETO SALAZAR METAL TILE SETTER 25 Ibuprofen (Ibuprofen 800 mg Tab) 800 Mg Tab, 800 MG PO Q8H PRN for fever or p ain, #30 TAB 0 Refills Prov:TEODORO ROMERO NP 11/18/24 Ciprofloxacin HCl/Hc (Cipro Hc Otic Susp) 0.2 %-1 % [place], 3 DROP OTIC BID for 7 Days, #10 ML 0 Refills THREE DROPS TO EACH EAR WITH COTTON TWICE A DAY FOR SEVEN DAYS Prov:TEODORO ROMERO METAL TILE SETTER 11/18/24 Loratadine (Loratadine) 10 Mg Tablet, 10 MG PO HS, #20 TAB 0 Refills Prov:TANIA JOYA MD 11/12/22 Fluticasone Propionate (Flonase Nasal [place]) 50 Mcg/[place], 2 SPRAY NASAL HS, #1 INHALER 0 Refills Prov:TANIA JOYA MD 11/12/22 Amoxicillin/Potassium Clav (Augmentin 500-125 Tablet) 1 Each Tablet, 1 EACH PO BID, #20 TAB 0 Refills Prov:TANIA JOYA MD 11/12/22 Hydroxyzine Pamoate (Vistaril) 25 Mg Capsule, 25 MG PO HSPRN PRN for ANXIETY, #20 CAP 0 Refills Prov:NROBERT CORDERO MD 10/12/21 Meloxicam (Mobic) 7.5 Mg Tablet, 7.5 MG PO DAILY, #10 TAB 0 Refills Prov:NORBERT CORDERO MD 10/12/21 Orphenadrine Citrate (Orphenadrine Citrate) 100 Mg Tablet.er, 100 MG PO [id number], #20 TAB 0 Refills Prov:NORBERT CORDERO MD 10/12/21 Ondansetron (Ondansetron Odt) 4 Mg Tab.rapdis, 4 MG PO Q6HPRN, #20 TAB 0 Refills Prov:NORBERT CORDERO MD 10/12/21 Naproxen (Naproxen) 500 Mg Tablet, 500 MG PO BID, #15 TAB Prov:DUTCH HENRIQUEZ 08/25/21 Meclizine HCl (Meclizine HCl) 12.5 Mg Tablet, 25 MG PO TID for 10 Days, #30 TAB Prov:RASHEED UMANA MD 05/22/21 Cephalexin Monohydrate (Keflex) 500 Mg Cap, 500 MG PO QID for 10 Days, #40 CAP Prov:RASHEED UMANA MD 05/22/21 Past Medical History Past Medical History: Hypertension Additional Past Medical Hx: COVID Surgical History: Appendectomy, Hysterectomy, BTL, Surgical History Other: D & C X 2; TUBAL LIGATION PSYCH History: no pertinent psych hx Family History: Negative Social History: Negative, Lives with family, Other History: Not Applicable RN Note Reviewed/Agreed w/PFSH: Yes Review of System Dictation REVIEW OF SYSTEMS: CONSTITUTIONAL: Patient denies fevers, chills, sweats and weight changes. Reports fatigue. She states she has not been sleeping well. EYES: Patient denies any vision changes. Reports irritated, red, watery eyes. EARS, NOSE, AND THROAT: No difficulties with hearing. Reports bilateral ear tresa n. Reports sore/scratchy throat. Reports hoarse voice. CARDIOVASCULAR: Patient denies chest pains, palpitations, orthopnea and paroxysmal nocturnal dyspnea. RESPIRATORY: No dyspnea on exertion, no wheezing or cough. GI: No nausea, vomiting, diarrhea, constipation, abdominal pain, hematochezia or melena. : No urinary hesitancy or dribbling. No nocturia or urinary frequency. No abnormal urethral discharge. MUSCULOSKELETAL: No myalgias or arthralgias. NEUROLOGIC: No chronic headaches, no seizures. Patient denies numbness, tingling or weakness. PSYCHIATRIC: Patient denies problems with mood disturbance. No problems with a nxiety. ENDOCRINE: No excessive urination or excessive thirst. DERMATOLOGIC: Patient denies any rashes or skin changes. Initial Vital Sign VS Vital Signs Date Time Temp Pulse Resp B/P (MAP) Pulse Ox O2 Delivery O2 Flow Rate FiO2 12/05/24 17:57 98.4 98 18 144/84 98 Room Air 12/05/24 20:52 0 21 Physical Exam Dictation Vital signs: Reviewed. Afebrile Constitutional: No acute distress. Non-toxic appearing. Head/Face: Normocephalic, atraumatic. Eyes: Periorbital areas with no swelling, redness, or edema. Lids and lashes are normal. Conjunctival injection is present. Tearing noted. Sclera anicteric. Pupils equal, round, reactive to light. ENT: Pinnas intact and no signs of trauma or erythema. Bilateral ear canals no drainage. Left ear with small amount of soft cerumen. Right ear clear. TMs no erythema. No nasal discharge or bleeding noted. Oropharynx with erythema but no exudate,swelling, masses, exudates, or evidence of obstruction. Uvula midline. Mucous membranes moist. Neck: Trachea midline, no masses palpated, and no cervical lymphadenopathy. No swelling. Supple, full range of motion. Chest/Axilla: No tenderness, no crepitus, no paradoxical movement, no retractions. Cardiovascular: Regular rate, regular rhythm, no murmur, no gallops. Symmetric pulses. No peripheral edema. Slight elevation of blood pressure at 144/84. Respiratory: Respirations even and unlabored. Lung sounds clear; no wheezes, rales or rhonchi. Room air SpO2 98%. Gastrointestinal: Obese. No distention is appreciated. Bowel sounds are normal. No mass or organomegaly . There is no tenderness. No rebound. No rigidity. No voluntary or involuntary guarding. No Mckeon's sign. Neurological: Normal speech, gross motor function intact, gross sensory function intact. No focal weakness/Paresthesia. Musculoskeletal/Extremities: All extremities have full range of motion, no pain or tenderness on palpation. Symmetric pulses. Integumentary: Intact. Skin is normal color, warm and dry. Cap refill less than 2 seconds. Results (Laboratory/Radiology) Laboratory/Radiology Laboratory Tests Test 12/05/24 20:10 Group A Streptococcus Rapid negative (NEGATIVE) Labs Reviewed?: Yes ED Course ED Course Orders Procedure Category Date Status Time Ketorolac PHA 12/05/24 Complete Tromethamine 30mg/Ml 18:30 Loratadine 10 Mg PHA 12/05/24 Complete (Loratadine 10 Mg) 18:30 Rapid (Group A Strep) LAB 12/05/24 Complete 18:25 Throat Culture REEMA 12/05/24 In Process 18:25 Current Medications Medications (Trade) Dose Ordered Sig/Uvaldo Route PRN Reason Start Time Stop Time Status Last Admin Dose Admin Ketorolac Tromethamine (toRADol) 30 mg ONCE ONCE IM 12/05/24 18:30 12/05/24 18:31 DC 12/05/24 20:11 Loratadine (LORATAdine 10 mg) 10 mg ONCE ONCE PO 12/05/24 18:30 12/05/24 18:31 DC 12/05/24 20:11 Vital Signs Date Time Temp Pulse Resp B/P (MAP) Pulse Ox O2 Delivery O2 Flow Rate FiO2 12/05/24 20:52 98.4 78 18 132/87 98 Room Air* 0 21 12/05/24 17:57 98.4 98 18 144/84 98 Room Air Uneventful ED course. Vital signs stable; afebrile and normotensive with room air SpO2 98%. Rapid strep seen his negative. Throat culture was obtain/pending. She received doses loratadine and Ketoralac. Findings were discussed with patient's PCP who agrees with referring to ENT. Medical Decision Making MDM MDM: Differential diagnosis: Otitis media, otitis externa cough, strep infection throat, laryngitis Rationale: Tests considered and ordered secondary to shared decision making include: Lab Previous outside records reviewed: Old ER visits. Risk of complication and/or morbidity or mortality of patient management: None Medications-Per medication reconciliation Need for hospitalization: Patient does not meet criteria for hospitalization. Need for emergency major/minor surgery: No There are no social concerns with this patient. Prescription drug management: Fluticasone, loratadine Prescriptions will include symptomatic care Patient's prior external medical records from other ER visits were reviewed by me as indicated. Prior testing and results from previous visits were reviewed. Prior tests were taken into account with medical decision making and resource utilization, independent historian/historians were used to obtain complete medical history. I independently interpreted the test that were performed, results were reviewed by me and considered findings on radiology if ordered. Medical management and examination interpretation discussions were had by me with other qualified healthcare professionals as indicated for the patient's care. DX & DISP Disposition: Discharge Departure Impression: Primary Impression: PND (post-nasal drip) Additional Impressions: Earache symptoms in both ears, Laryngitis Condition: Stable Scripts Loratadine (Loratadine) 10 Mg Tablet 10 MG PO nightly, #30 TAB 0 Refills Prov: TETO SALAZAR NP 12/05/24 Fluticasone Propionate (Flonase Nasal [place]) 50 Mcg/[place] 2 SPRAY NS DAILY for 14 Days, #16 GM 0 Refills Prov: TETO SALAZAR NP 12/05/24 Additional Instructions: Voice rest. Drink plenty of fluids. Start fluticasone two sprays daily for the next two weeks. Continue montelukast and loratadine. I have spoken to your PCP and recommended referral to ENT. Return to the emergency department for any worsening of symptoms or concerns. Referrals: CHAPO COUGHLIN (PCP) Time of Disposition: 20:01 TETO SALAZAR NP December 05, 2024 18:27 CHEPE QUINONEZ DO December 06, 2024 02:50
[2024-12-05] MEDS ORDERED: FLUT16H NS (18:36)
[2024-12-05] MEDS ORDERED: LORA10TA7 PO (18:36)
[2024-12-05] MEDS: ketOROlac 30MG VIAL (30MG/ML) IM ONE (20:11)
[2024-12-05] MEDS: LORATAdine 10 mg 10 MG TABLET PO ONE (20:11)
[2024-12-05 20:52] VITALS: BP 132/87; PULSE 78; RESP 18; TEMP 98.5; O2SAT 98
== END 2024-12-05 20:53 | disposition home or self-care (01) ==
LOC: EDH 17:56
DX: J04.0 Acute laryngitis (principal); H92.03 Otalgia, bilateral; R09.82 Postnasal drip; I10 Essential (primary) hypertension; Z79.1 Long term (current) use of non-steroidal anti-inflammatories (NSAID); Z86.16 Personal history of COVID-19; Z88.5 Allergy status to narcotic agent; Z90.49 Acquired absence of other specified parts of digestive tract; Z90.710 Acquired absence of both cervix and uterus
CPT/HCPCS: 99284; 87071; 87880; 96372; J1885

== ENCOUNTER 2025-01-12 21:59 | Emergency (ER) | payer BC ==
[~2025-01-12] VITALS: Ht 170.2 cm; Wt 109.8 kg
[~2025-01-12 21:59] MED LIST changes: +FLUT16H NS
--- NOTE | 2025-01-12 23:08 | NUR ---
TRANSFERED CARE TO [facility] AT THIS TIME
--- NOTE | 2025-01-13 00:05 | HMCIMG ---
EXAM: CR Right Shoulder, 2 views. CLINICAL HISTORY: Pain. COMPARISON: None provided. FINDINGS: No acute fracture or aggressive appearing osseous lesion. Mild to moderate osteoarthritis in the acromioclavicular and glenohumeral joints. The soft tissues are unremarkable. IMPRESSION: No acute bony abnormality is evident. Mild to moderate osteoarthritis in the acromioclavicular and glenohumeral joints. /[place]
[2025-01-13] MEDS ORDERED: CYCL5TAB3 PO (00:51)
[2025-01-13] MEDS ORDERED: KETO10 PO (00:51)
--- NOTE | 2025-01-13 01:00 | ERN ---
ED Note History of Present Illness Stated Complaint: C/O PAIN TO RIGHT SHOULDER AND RT ARM Chief Complaint: Shoulder Injury/Pain Time Seen by MD: 22:17 Time Seen by Midlevel: 22:30 Dictation: Ms. Baldwin is a 59-year-old female with history of obesity and hypertension who presented to the emergency department this evening for evaluation of shoulder pain. She reports right shoulder pain for the past week. She states that she did not has had no trauma and has never felt this pain before. She has pain with range of motion of the right shoulder; limited abduction and external rotation. He has good color, warmth, movement, and sensation to right fingers. There is some swelling of the arm. Patient states she has been keeping it immobile. All other joints with full range of motion. Allergies: Coded Allergies: codeine (Unverified Allergy, Unknown, 05/22/21) meperidine (Unverified Allergy, Unknown, 05/22/21) morphine (Unverified Allergy, Unknown, 01/20/19) sumatriptan (Unverified Allergy, Unknown, 01/20/19) Home Meds Active Scripts Loratadine (Loratadine) 10 Mg Tablet, 10 MG PO nightly, #30 TAB 0 Refills Prov:TETO SALAZAR NP 12/05/24 Fluticasone Propionate (Flonase Nasal [place]) 50 Mcg/Actuation [place], 2 SPRAY NS DAILY for 14 Days, #16 GM 0 Refills Prov:TETO SALAZAR [employer] 12/05/24 Ibuprofen (Ibuprofen 800 mg Tab) 800 Mg Tab, 800 MG PO Q8H PRN for fever or pain, #30 TAB 0 Refills Prov:TEODORO ROMERO NP 11/18/24 Ciprofloxacin HCl/Hc (Cipro Hc Otic Susp) 0.2 %-1 % Otsus, 3 DROP OTIC BID for 7 Days, #10 ML 0 Refills THREE DROPS TO EACH EAR WITH COTTON TWICE A DAY FOR SEVEN DAYS Prov:TEODORO ROMERO NP 11/18/24 Loratadine (Loratadine) 10 Mg Tablet, 10 MG PO HS, #20 TAB 0 Refills Prov:TANIA JOYA MD 11/12/22 Fluticasone Propionate (Flonase Nasal [place]) 50 Mcg/[place], 2 SPRAY NASAL HS, #1 INHALER 0 Refills Prov:TANIA JOYA MD 11/12/22 Amoxicillin/Potassium Clav (Augmentin 500-125 Tablet) 1 Each Tablet, 1 EACH PO BID, #20 TAB 0 Refills Prov:TANIA JOYA MD 11/12/22 Hydroxyzine Pamoate (Vistaril) 25 Mg Capsule, 25 MG PO HSPRN PRN for ANXIETY, #20 CAP 0 Refills Prov:NORBERT CORDERO MD 10/12/21 Meloxicam (Mobic) 7.5 Mg Tablet, 7.5 MG PO DAILY, #10 TAB 0 Refills Prov:NORBERT CORDERO MD 10/12/21 Orphenadrine Citrate (Orphenadrine Citrate) 100 Mg Tablet.er, 100 MG PO [id number], #20 TAB 0 Refills Prov:NORBERT CORDERO MD 10/12/21 Ondansetron (Ondansetron Odt) 4 Mg Tab.rapdis, 4 MG PO Q6HPRN, #20 TAB 0 Refills Prov:NORBERT CORDERO MD 10/12/21 Naproxen (Naproxen) 500 Mg Tablet, 500 MG PO BID, #15 TAB Prov:DUTCH HENRIQUEZ 08/25/21 Meclizine HCl (Meclizine HCl) 12.5 Mg Tablet, 25 MG PO TID for 10 Days, #30 TAB Prov:RASHEED UMANA MD 05/22/21 Cephalexin Monohydrate (Keflex) 500 Mg Cap, 500 MG PO QID for 10 Days, #40 CAP Prov:RASHEED UMANA MD 05/22/21 Past Medical History Past Medical History: Hypertension Additional Past Medical Hx: COVID Surgical History: Hysterectomy, Cholecystectomy, Surgical History Other: TUBAL LIGATION Family History: Negative Social History: Negative, Lives with family, Other History: Not Applicable RN Note Reviewed/Agreed w/PFSH: Yes Review of System Dictation REVIEW OF SYSTEMS: CONSTITUTIONAL: Patient denies fevers, chills, sweats and weight changes. EYES: Patient denies any visual symptoms. EARS, NOSE, AND THROAT: No difficulties with hearing. No symptoms of rhinitis or sore throat. CARDIOVASCULAR: Patient denies chest pains, palpitations, orthopnea and paroxysmal nocturnal dyspnea. RESPIRATORY: No dyspnea on exertion, no wheezing or cough. GI: No nausea, vomiting, diarrhea, constipation, abdominal pain, hematochezia or melena. : No urinary hesitancy or dribbling. No nocturia or urinary frequency. No abnormal urethral discharge. MUSCULOSKELETAL: Reports pain to right shoulder. NEUROLOGIC: No chronic headaches, no seizures. Patient denies numbness, tingling or weakness. PSYCHIATRIC: Patient denies problems with mood disturbance. No problems with anxiety. ENDOCRINE: No excessive urination or excessive thirst. DERMATOLOGIC: Patient denies any rashes or skin changes. Initial Vital Sign VS Vital Signs Date Time Temp Pulse Resp B/P (MAP) Pulse Ox O2 Delivery O2 Flow Rate FiO2 01/12/25 22:00 97.9 79 20 157/67 98 Room Air 01/12/25 22:10 0 21 Physical Exam Dictation Vital signs: Reviewed. Afebrile Constitutional: No acute distress. Non-toxic appearing. Head/Face: Normocephalic, atraumatic. Eyes: Periorbital areas with no swelling, redness, or edema. Lids and lashes are normal. Conjunctival injection is absent. Sclera anicteric. Pupils equal, round, reactive to light. ENT: Pinnas intact and no signs of trauma or erythema. Ear canals clear and no discharge. TMs no erythema. No nasal discharge or bleeding noted. Oropharynx with no exudate, redness, swelling, masses, exudates, or evidence of obstruction. Uvula midline. Mucous membranes moist. Neck: Trachea midline, no masses palpated, and no cervical lymphadenopathy. No swelling. Supple, full range of motion. Chest/Axilla: No tenderness, no crepitus, no paradoxical movement, no retractions. Cardiovascular: Regular rate, regular rhythm, no murmur, no gallops. Symmetric pulses. No peripheral edema. Respiratory: Respirations even and unlabored. Lung sounds clear; no wheezes, rales or rhonchi. Room air SpO2 92% Gastrointestinal: Inspection is normal. No distention is appreciated. Bowel sounds are normal. No mass or organomegaly . There is no tenderness. No rebound. No rigidity. No voluntary or involuntary guarding. No Mckeon's sign. Neurological: Normal speech, gross motor function intact, gross sensory function intact. No focal weakness/Paresthesia. Musculoskeletal/Extremities: Range of motion intact to right wrist and right elbow. Range of motion is limited to the right shoulder; abduction is limited; unable to raise arm above shoulder. External and internal rotation are limited. This is exhibited with passive and active range of motion. She has good color, warmth, movement, and sensation to right fingers. Capillary refill is brisk Integumentary: Intact. Skin is normal color, warm and dry. Cap refill less than 3 seconds. Results (Laboratory/Radiology) X-RAY Comment: ATIENT: ALKA BALDWIN MR#: [id number] : 1965 SEX: F AGE: 59 LOCATION: [facility] ORDER 38 STATUS: REG REPORT#: [id number] SERVICE 37 REASON: pain ORDERING PHYSICIAN: TETO SALAZAR NP PROCEDURE: SHOL 2V RT - SHOULDER COMP 2+VWS RT EXAM: CR Right Shoulder, 2 views. CLINICAL HISTORY: Pain. COMPARISON: None provided. FINDINGS: No acute fracture or aggressive appearing osseous lesion. Mild to moderate osteoarthritis in the acromioclavicular and glenohumeral joints. The soft tissues are unremarkable. IMPRESSION: No acute bony abnormality is evident. Mild to moderate osteoarthritis in the acromioclavicular and glenohumeral joints. /[place] DICTATED BY: THEO BLANC Jr., MD DATE: 01/13/25103 ELECTRONICALLY SIGNED BY: THEO BLANC Jr., MD DATE: 01/13/25103 ED Course ED Course Orders Procedure Category Date Status Time Shoulder Comp 2+Vws Rt RAD 01/12/25 Resulted 22:38 Vital Signs Date Time Temp Pulse Resp B/P (MAP) Pulse Ox O2 Delivery O2 Flow Rate FiO2 01/12/25 22:10 98.1 75 16 156/65 98 Room Air* 0 21 01/12/25 22:00 97.9 79 20 157/67 98 Room Air Uneventful ED course. Vital signs stable; afebrile with room air SpO2 98%. She has pain with range of motion to the right shoulder. X-ray of the right shoulder revealed [id number] osteoarthritis to the acromioclavicular and glenohumeral joints. She has good color, warmth, movement, and sensation to the right fingers. Capillary refill is brisk. Radial and ulnar pulses are palpable. She received doses Toradol and Flexeril. NS sling was applied. Findings were discussed with patient and all questions were answered. Recommend follow up with PCP for additional imaging and possible referral to physical therapist. She may eventually require referral to orthopedic surgeon. Medical Decision Making MDM MDM: Differential diagnosis: Osteoarthritis, shoulder strain, shoulder fracture Rationale: Tests considered and ordered secondary to shared decision making include: X-ray Previous outside records reviewed: Old ER visits. Risk of complication and/or morbidity or mortality of patient management: None Medications-Per medication reconciliation Need for hospitalization: Patient does not meet criteria for hospitalization. Need for emergency major/minor surgery: No There are no social concerns with this patient. Prescription drug management: Flexeril, Toradol Prescriptions will include symptomatic care Patient's prior external medical records from other ER visits were reviewed by me as indicated. Prior testing and results from previous visits were reviewed. Prior tests were taken into account with medical decision making and resource utilization, independent historian/historians were used to obtain complete medical history. I independently interpreted the test that were performed, results were reviewed by me and considered findings on radiology if ordered. Medical management and examination interpretation discussions were had by me with other qualified healthcare professionals as indicated for the patient's care. DX & DISP Disposition: Discharge Departure Impression: Primary Impression: Osteoarthritis, shoulder Additional Impression: Shoulder pain, right Condition: Stable Scripts Cyclobenzaprine HCl (Cyclobenzaprine HCl) 5 Mg Tablet 1 TAB PO TIDP PRN for muscle spasms, #12 TAB 0 Refills Prov: TETO SALAZAR NP 01/13/25 Ketorolac Tromethamine (Toradol) 10 Mg Tab 1 TAB PO Q6HPRN PRN for pain for 5 Days, #20 TAB 0 Refills Prov: TETO SALAZAR [employer] 01/13/25 Additional Instructions: rest. May use sling. You need to heart gentle [id number] exercises. May try heat or cool therapy whichever feels better. May try [id number] sports creams as needed. Take Toradol every 6 hours as needed for discomfort (take with food). May take Flexeril as needed for muscle spasms. Follow up with your PCP later this week. You may benefit from referral to physical therapy and may need additional outpatient imaging. Return to the emergency department for any worsening of symptoms or concerns. Referrals: CHAPO COUGHLIN STEVE (PCP) Time of Disposition: 00:52 TETO SALAZAR NP Jan 13, 2025 01:00
[2025-01-13] MEDS: CYCLOBENZAPRINE HCL 10 MG TABLET PO ONE (01:13)
[2025-01-13 01:20] VITALS: BP 152/72; PULSE 72; RESP 16; TEMP 98.1; O2SAT 99
== END 2025-01-13 01:56 | disposition home or self-care (01) ==
LOC: EDH 21:59
DX: M19.011 Primary osteoarthritis, right shoulder (principal); M25.511 Pain in right shoulder; I10 Essential (primary) hypertension; Z79.1 Long term (current) use of non-steroidal anti-inflammatories (NSAID); Z86.16 Personal history of COVID-19; Z88.5 Allergy status to narcotic agent; Z90.49 Acquired absence of other specified parts of digestive tract; Z90.710 Acquired absence of both cervix and uterus
CPT/HCPCS: 99284; 73030; 96372; J1885